=== PATIENT | male | born 1960 | race Caucasian/White ===

== ENCOUNTER 2017-01-25 01:01 | Emergency (ER) | payer SELFPAY ==
[~2017-01-25] VITALS: Ht 170.2 cm; Wt 95.5 kg
[2017-01-25] MEDS ORDERED: ENAL10TA2 PO (01:06)
[2017-01-25] MEDS ORDERED: SODIUM CHLORIDE 0.9% 1,000 ML IV ONE (01:30)
[2017-01-25] MEDS ORDERED: ONDANSETRON HCL 4 MG/2 ML VIAL IVP ONE (01:30)
[2017-01-25] MEDS ORDERED: DIPHENOXYLATE/ATROP 2.5-0.025 MG TABLET PO ONE (01:30)
[2017-01-25 01:47] LABS: BASOPHILS % (AUTO) 0.2 % (0.0-2.0); EOSINOPHILS % (AUTO) 1.8 % (1.0-6.0); HEMATOCRIT 39.7 % (41-53); HEMOGLOBIN 13.3 g/dL (13.5-17.5); LYMPHOCYTES # (AUTO) 1.5 K/uL (1.0-4.8); MEAN CORPUSCULAR HEMOGLOBIN 29.2 pg (26.0-34.0); MEAN CORPUSCULAR HGB CONC 33.4 G/dL (31.0-37.0); MEAN CORPUSCULAR VOLUME 88 fL (80-100); MONOCYTES # (AUTO) 0.4 K/uL (0.1-1.0); MONOCYTES % (AUTO) 5.1 % (2.0-9.0); NEUTROPHILS # (AUTO) 6.6 K/uL (1.8-7.7); NEUTROPHILS % (AUTO) 75.9 % (40.0-70.0); PLATELET COUNT (AUTO) 212 K/uL (150-450); RED BLOOD CELL COUNT(AUTO) 4.53 MIL/uL (4.50-5.90); RED CELL DISTRIBUTION WIDTH 13.6 % (11.5-14.5); WHITE BLOOD COUNT (AUTO) 8.8 K/uL (4.5-11.0)
[2017-01-25 01:55] LABS: ANION GAP 9 mmol/L (8-16); CALCIUM, TOTAL 9.8 mg/dL (8.8-10.5); CARBON DIOXIDE 29 mmol/L (22-29); CHLORIDE 100 mmol/L (98-107); GLOMERULAR FILTR. RATE CALC > 60 mL/min (>60); POTASSIUM 3.8 mmol/L (3.5-5.1); SODIUM SERUM 138 mmol/L (136-145); UREA NITROGEN, BLOOD 24 mg/dL (7-18)
[2017-01-25 02:00] LABS: ALANINE AMINOTRANSFERASE 28 U/L (12-78); ASPARTATE AMINOTRANSFERASE 20 U/L (15-37); BILIRUBIN,TOTAL 0.3 mg/dL (0.1-1.0); TOTAL PROTEIN, SERUM 8.2 g/dL (6.4-8.2)
[2017-01-25] MEDS ORDERED: HYDROmorphone 2 MG/ML SYRINGE IVP ONE (02:15)
[2017-01-25 04:30] VITALS: BP 117/62
[2017-01-25] MEDS ORDERED: ONDANSETRON HCL 4 MG/2 ML VIAL IM ONE (05:15)
== END 2017-01-25 05:41 | disposition home or self-care (01) ==
LOC: EMS 01:03
DX: K52.9 Noninfective gastroenteritis and colitis, unspecified (principal); K80.80 Other cholelithiasis without obstruction; I10 Essential (primary) hypertension
CPT/HCPCS: 36415; 74176; 80053; 83690; 84484; 85025; 93005; 96361; 96372; 96374; 96375; 99285; J1170; J2405; J7030

== ENCOUNTER 2017-04-04 23:48 | Emergency (ER) | payer SELFPAY ==
[~2017-04-04] VITALS: Ht 172.7 cm; Wt 81.8 kg
[~2017-04-04 23:48] MED LIST: ENAL10TA2 PO
[2017-04-05] MEDS ORDERED: RANI150T7 PO (00:16)
[2017-04-05] MEDS ORDERED: [UNRECOGNIZED DRUG - OTHER] PO (00:16)
[2017-04-05] MEDS ORDERED: TRAM50TA4 PO (00:16)
[2017-04-05 00:49] LABS: BASOPHILS # (AUTO) 0.02 K/uL (0.00-0.20); BASOPHILS % (AUTO) 0.2 % (0.0-2.0); EOSINOPHILS # (AUTO) 0.13 K/uL (0.00-0.70); EOSINOPHILS % (AUTO) 1.29 % (1.0-6.0); HEMATOCRIT 41.8 % (41-53); HEMOGLOBIN 13.8 g/dL (13.5-17.5); LYMPHOCYTES # (AUTO) 1.2 K/uL (1.0-4.8); LYMPHOCYTES % (AUTO) 11.7 % (22.0-44.0); MEAN CORPUSCULAR HEMOGLOBIN 29.4 pg (26.0-34.0); MEAN CORPUSCULAR HGB CONC 33.1 G/dL (31.0-37.0); MEAN CORPUSCULAR VOLUME 89 fL (80-100); MONOCYTES # (AUTO) 0.5 K/uL (0.1-1.0); MONOCYTES % (AUTO) 5.3 % (2.0-9.0); NEUTROPHILS # (AUTO) 8.3 K/uL (1.8-7.7); NEUTROPHILS % (AUTO) 81.5 % (40.0-70.0); PLATELET COUNT (AUTO) 210 K/uL (150-450); RED CELL DISTRIBUTION WIDTH 13.1 % (11.5-14.5); WHITE BLOOD COUNT (AUTO) 10.1 K/uL (4.5-11.0)
[2017-04-05 00:53] LABS: APPEARANCE,URINE CLEAR (CLEAR); GLUCOSE, URINE (UA) NEGATIVE (NEGATIVE); KETONES,URINE NEGATIVE (NEGATIVE); LEUKOCYTE ESTERASE ,URINE NEGATIVE (NEGATIVE); OCCULT BLOOD,URINE NEGATIVE (NEGATIVE); PH,URINE 8.5 (5.0-8.0); PROTEIN,URINE NEGATIVE (NEGATIVE)
[2017-04-05 00:58] LABS: ADD UA MICROSCOPIC NO
[2017-04-05 00:59] LABS: ANION GAP 8 mmol/L (8-16); CALCIUM, TOTAL 9.5 mg/dL (8.8-10.5); CARBON DIOXIDE 30 mmol/L (22-29); CHLORIDE 99 mmol/L (98-107); CREATININE 1.14 mg/dL (0.60-1.30); GLOMERULAR FILTR. RATE CALC > 60 mL/min (>60); POTASSIUM 4.3 mmol/L (3.5-5.1); SODIUM SERUM 137 mmol/L (136-145); UREA NITROGEN, BLOOD 18 mg/dL (7-18)
[2017-04-05 01:05] LABS: ALANINE AMINOTRANSFERASE 27 U/L (12-78); ASPARTATE AMINOTRANSFERASE 17 U/L (15-37); BILIRUBIN,TOTAL 0.6 mg/dL (0.1-1.0); TOTAL PROTEIN, SERUM 8.5 g/dL (6.4-8.2)
[2017-04-05] MEDS ORDERED: DONNATAL/LIDOCAINE/MAALOX 55 ML BOTTLE PO ONE (03:00)
[2017-04-05] MEDS ORDERED: SODIUM CHLORIDE 0.9% 1,000 ML IV ONE (03:00)
[2017-04-05] MEDS ORDERED: ONDANSETRON HCL 4 MG/2 ML VIAL IVP ONE (03:00)
[2017-04-05] MEDS ORDERED: MORPHINE SULFATE 4 MG/ML SYRINGE IVP ONE (04:00)
[2017-04-05 05:40] VITALS: BP 131/78
== END 2017-04-05 05:58 | disposition home or self-care (01) ==
LOC: EMS 23:50
DX: K80.70 Calculus of gallbladder and bile duct without cholecystitis without obstruction (principal); R19.7 Diarrhea, unspecified; Z90.49 Acquired absence of other specified parts of digestive tract
CPT/HCPCS: 36415; 74176; 80053; 81003; 83690; 84484; 85025; 93005; 96361; 96374; 96375; 99285; J2270; J2405; J7030; Z7610

== ENCOUNTER 2017-04-05 21:18 | Inpatient (IN) | payer MEDICAID ==
[~2017-04-05] VITALS: Ht 172.7 cm; Wt 90.0 kg
[~2017-04-05 21:18] MED LIST changes: +RANI150T7 PO; +TRAM50TA4 PO; +[UNRECOGNIZED DRUG - OTHER] PO
[2017-04-05 22:10] LABS: BASOPHILS % (AUTO) 0.2 % (0.0-2.0); EOSINOPHILS % (AUTO) 1.4 % (1.0-6.0); HEMATOCRIT 39.7 % (41-53); HEMOGLOBIN 13.5 g/dL (13.5-17.5); LYMPHOCYTES # (AUTO) 1.3 K/uL (1.0-4.8); LYMPHOCYTES % (AUTO) 13.9 % (22.0-44.0); MEAN CORPUSCULAR HEMOGLOBIN 30.1 pg (26.0-34.0); MEAN CORPUSCULAR VOLUME 89 fL (80-100); MONOCYTES # (AUTO) 0.8 K/uL (0.1-1.0); MONOCYTES % (AUTO) 8.1 % (2.0-9.0); NEUTROPHILS # (AUTO) 7.3 K/uL (1.8-7.7); NEUTROPHILS % (AUTO) 76.4 % (40.0-70.0); PLATELET COUNT (AUTO) 227 K/uL (150-450); RED BLOOD CELL COUNT(AUTO) 4.49 MIL/uL (4.50-5.90); RED CELL DISTRIBUTION WIDTH 13.4 % (11.5-14.5); WHITE BLOOD COUNT (AUTO) 9.6 K/uL (4.5-11.0)
[2017-04-05 22:19] LABS: CALCIUM, TOTAL 9.4 mg/dL (8.8-10.5); CREATININE 1.28 mg/dL (0.60-1.30); POTASSIUM 4.2 mmol/L (3.5-5.1)
[2017-04-05 22:24] LABS: ALBUMIN 3.9 g/dL (3.4-5.0); BILIRUBIN,TOTAL 0.6 mg/dL (0.1-1.0); TOTAL PROTEIN, SERUM 8.5 g/dL (6.4-8.2)
[2017-04-05 22:45] LABS: APPEARANCE,URINE CLEAR (CLEAR); GLUCOSE, URINE (UA) NEGATIVE (NEGATIVE); KETONES,URINE NEGATIVE (NEGATIVE); LEUKOCYTE ESTERASE ,URINE NEGATIVE (NEGATIVE); OCCULT BLOOD,URINE NEGATIVE (NEGATIVE); PH,URINE 7.5 (5.0-8.0); PROTEIN,URINE NEGATIVE (NEGATIVE)
[2017-04-05 22:50] LABS: ADD UA MICROSCOPIC NO
[2017-04-06] VITALS (7 sets, daily range): BP systolic 115–156; BP diastolic 69–85
[2017-04-06] MEDS ORDERED: 0.9% SODIUM CHLORIDE 10 ML SYRINGE IVP PRN (00:15)
[2017-04-06] MEDS: DOCUSATE SODIUM 100 MG CAPSULE PO SCH ×3 (00:15→20:21)
[2017-04-06] MEDS ORDERED: ONDANSETRON HCL 4 MG/2 ML VIAL IVP PRN (00:15)
[2017-04-06] MEDS ORDERED: OxyCODONE HCL/ACETAMINOPHEN 5-325 MG TABLET PO PRN ×2 (00:15)
[2017-04-06] MEDS ORDERED: ONDANSETRON HCL 4 MG/2 ML VIAL IVP ONE (00:45)
[2017-04-06] MEDS ORDERED: MORPHINE SULFATE 4 MG/ML SYRINGE IVP ONE (00:45)
[2017-04-06] MEDS: MORPHINE SULFATE 2 MG/ML SYRINGE IVP PRN ×3 (03:31→12:39)
[2017-04-06] MEDS ORDERED: INFLUENZA VIRUS VACCINE QVS 2017-18 (3YR+)/PF 60 MCG/0.5 ML SYRINGE IM ONE (04:15)
[2017-04-06] MEDS ORDERED: SODIUM CHLORIDE 0.9% 1,000 ML IV SCH (04:15)
[2017-04-06] MEDS ORDERED: AMYLASE/LIPASE/PROTEASE 30/6/19 MU DR CAPSULE PO ONE (08:00)
[2017-04-06] MEDS: PANTOPRAZOLE SODIUM 40 MG/VIAL IVP SCH (08:19)
[2017-04-06] MEDS ORDERED: HYDROmorphone 2 MG/ML SYRINGE IVP PRN (14:00)
[2017-04-06] MEDS ORDERED: MEPERIDINE-PF 25 MG/ML SYRINGE IVP PRN (14:00)
[2017-04-06] MEDS ORDERED: FentaNYL CITRATE-PF 100 MCG/2 ML VIAL IVP PRN (14:00)
[2017-04-06] MEDS ORDERED: SODIUM CL IRRIG SOLN BAG 3,000 ML IRRIG ONE (15:23)
[2017-04-06] MEDS ORDERED: BUPIVACAINE HCL/PF 0.5% 30 ML VIAL ONE (15:23)
[2017-04-06] MEDS ORDERED: RINGERS SOLUTION,LACTATED 1,000 ML IV ONE ×3 (15:31→17:24)
[2017-04-06] MEDS ORDERED: LIDOCAINE HCL 1%/EPI 1:200,000/PF 30 ML VIAL ONE (16:40)
[2017-04-06] MEDS ORDERED: OXYGEN THERAPY IH SCH (20:00)
[2017-04-07 03:15] VITALS: BP 104/61
[2017-04-07] MEDS ORDERED: PROPOFOL 1% 20 ML VIAL IVP ONE (04:52)
[2017-04-07] MEDS ORDERED: LIDOCAINE HCL/PF 2% 5 ML VIAL IM ONE (04:52)
[2017-04-07] MEDS ORDERED: SUCCINYLCHOLINE CHLORIDE 20 MG/ML 10 ML VIAL IVP ONE (04:52)
[2017-04-07] MEDS ORDERED: GLYCOPYRROLATE 0.2 MG/ML VIAL IM ONE (04:52)
[2017-04-07] MEDS ORDERED: METOCLOPRAMIDE HCL 5 MG/ML 2 ML VIAL IVP ONE (04:52)
[2017-04-07] MEDS ORDERED: ROCURONIUM BROMIDE 10 MG/ML 5 ML VIAL IVP ONE (04:52)
[2017-04-07] MEDS ORDERED: NEOSTIGMINE METHYLSULFATE 1 MG/ML 10 ML VIAL IVP ONE (04:52)
[2017-04-07] MEDS ORDERED: DEXAMETHASONE SOD PHOS 4 MG/ML VIAL IVP ONE (04:52)
[2017-04-07] MEDS ORDERED: KETOROLAC TROMETHAMINE 60 MG/2 ML VIAL IM ONE (04:52)
[2017-04-07] MEDS ORDERED: ONDANSETRON HCL 4 MG/2 ML VIAL IVP ONE (04:52)
[2017-04-07 06:18] LABS: EOSINOPHILS % (AUTO) 0 % (1.0-6.0); HEMATOCRIT 35.2 % (41-53); HEMOGLOBIN 12.1 g/dL (13.5-17.5); LYMPHOCYTES # (AUTO) 0.8 K/uL (1.0-4.8); LYMPHOCYTES % (AUTO) 8.4 % (22.0-44.0); MEAN CORPUSCULAR HEMOGLOBIN 30.4 pg (26.0-34.0); MEAN CORPUSCULAR HGB CONC 34.3 G/dL (31.0-37.0); MEAN CORPUSCULAR VOLUME 89 fL (80-100); MONOCYTES # (AUTO) 0.6 K/uL (0.1-1.0); MONOCYTES % (AUTO) 6.7 % (2.0-9.0); NEUTROPHILS # (AUTO) 7.9 K/uL (1.8-7.7); NEUTROPHILS % (AUTO) 84.9 % (40.0-70.0); PLATELET COUNT (AUTO) 222 K/uL (150-450); RED BLOOD CELL COUNT(AUTO) 3.97 MIL/uL (4.50-5.90); RED CELL DISTRIBUTION WIDTH 12.9 % (11.5-14.5); WHITE BLOOD COUNT (AUTO) 9.3 K/uL (4.5-11.0)
[2017-04-07 06:50] LABS: CALCIUM, TOTAL 8.6 mg/dL (8.8-10.5); CREATININE 1.3 mg/dL (0.60-1.30); POTASSIUM 4.3 mmol/L (3.5-5.1)
[2017-04-07 07:48] VITALS: BP 100/62
[2017-04-07] MEDS: PANTOPRAZOLE SODIUM 40 MG/VIAL IVP SCH (08:41)
[2017-04-07] MEDS: DOCUSATE SODIUM 100 MG CAPSULE PO SCH (08:48)
[2017-04-07 11:17] VITALS: BP 120/64
[2017-04-07 15:23] VITALS: BP 129/62
[2017-04-07] MEDS ORDERED: MIDAZOLAM HCL 2 MG/2 ML VIAL IVP ONE (18:29)
[2017-04-07] MEDS ORDERED: FentaNYL CITRATE-PF 100 MCG/2 ML VIAL IVP ONE (18:29)
== END 2017-04-07 18:30 | disposition home or self-care (01) | DRG 263 ==
LOC: EMS 21:20 → 4E 23:28
PROVIDERS: ADMIT Internal Medicine; ATTEND Internal Medicine
PROC: 0FT44ZZ Resection of Gallbladder, Percutaneous Endoscopic Approach (ICD-10-PCS; principal; 2017-04-06 16:45)
DX: K80.00 Calculus of gallbladder with acute cholecystitis without obstruction (principal); I10 Essential (primary) hypertension; I45.10 Unspecified right bundle-branch block; I45.2 Bifascicular block; K66.0 Peritoneal adhesions (postprocedural) (postinfection); K82.8 Other specified diseases of gallbladder; Z93.3 Colostomy status
CPT/HCPCS: 76700; 87081; 88304; 93005; 96374; 96375; 99285; C9113; J0330; J0690; J1100; J1885; J2250; J2270; J2405; J2704; J2765; J3010; J3490; J7030; J7120